=== PATIENT | male | born 1985 | race Caucasian/White ===

== ENCOUNTER 2018-05-21 15:19 | Emergency (ER) | payer BC, OTHER, SELFPAY ==
[~2018-05-21] VITALS: Ht 188 cm; Wt 113.5 kg
[2018-05-21] MEDS ORDERED: DIPH,PERTUSS(ACELL),TET VAC/PF 0.5 ML IM-VACC ONE ×2 (15:30→15:57)
[2018-05-21] MEDS ORDERED: SILVER SULF. CRM 1% , 25GM TP ONE (15:30)
[2018-05-21] MEDS ORDERED: OXYcodone/APAP 5/325MG TABLET ONE (15:56)
[2018-05-21] MEDS ORDERED: ONDANSETRON ODT 4 MG ONE (15:57)
[2018-05-21] MEDS ORDERED: ONDANSETRON ODT 4 MG PO ONE (16:00)
[2018-05-21] MEDS ORDERED: OXYcodone/APAP 5/325MG TABLET PO ONE (16:00)
[2018-05-21] MEDS ORDERED: SILVER SULF. CRM 1% , 25GM ONE (16:01)
[2018-05-21 16:32] VITALS: BP 145/91
== END 2018-05-21 16:33 | disposition home or self-care (01) ==
LOC: ED 15:50
DX: T22.211A Burn of second degree of right forearm, initial encounter (principal); T23.231A Burn of second degree of multiple right fingers (nail), not including thumb, initial encounter; X12.XXXA Contact with other hot fluids, initial encounter; Y93.89 Activity, other specified; Y92.810 Car as the place of occurrence of the external cause; Y99.8 Other external cause status
CPT/HCPCS: 16000; 90471; 90715; 99284; Q0162